=== PATIENT | female | born 1995 | race Two or more races ===

== ENCOUNTER → 2023-02-03 | Day surgery (SDC) | payer BC ==
[~2023-02-03] VITALS: Ht 170.2 cm; Wt 67.0 kg
[~2023-02-03] MED LIST: DICY-61 PO; FISH1CAP32 PO; L-LY500T23 PO; LIDOCAINE 2% 100MG/5ML SDV (FOR ANES.) As Ordered ONE; METR-265; NS 1,000 ML IV ONE; VALA500T5; VENL75CA47; fentaNYL 100 MCG/2 ML INJECTION As Ordered ONE; propofoL 200 MG/20 ML VIAL As Ordered ONE
[2023-02-03 15:02] VITALS: BP 111/68; TEMP 97.5; O2SAT 100
== END | disposition home or self-care (01) ==
LOC: M OPP 11:58
PROVIDERS: ATTEND Internal Medicine Gastroenterology
DX: R10.13 Epigastric pain (principal); R11.0 Nausea; K21.9 Gastro-esophageal reflux disease without esophagitis; Z79.899 Other long term (current) drug therapy; Z88.2 Allergy status to sulfonamides
CPT/HCPCS: 43235; J3010

== ENCOUNTER 2023-05-17 14:03 | Day surgery (SDC) | payer BC ==
[~2023-05-17] VITALS: Ht 170.2 cm; Wt 70.9 kg
[~2023-05-17 14:03] MED LIST changes: -LIDOCAINE 2% 100MG/5ML SDV (FOR ANES.) As Ordered ONE; -NS 1,000 ML IV ONE; -VALA500T5; +VALA500T5 PO; -VENL75CA47; +VENL75CA47 PO; -fentaNYL 100 MCG/2 ML INJECTION As Ordered ONE; -propofoL 200 MG/20 ML VIAL As Ordered ONE
[2023-05-17] MEDS ORDERED: LR 1,000 ML IV SCH ×2 (14:30→17:55)
[2023-05-17] MEDS ORDERED: propofoL 200 MG/20 ML VIAL As Ordered ONE (14:41)
[2023-05-17] MEDS ORDERED: fentaNYL 100 MCG/2 ML INJECTION As Ordered ONE (14:41)
[2023-05-17] MEDS ORDERED: MIDAZOLAM INJ 2MG/2ML VIAL As Ordered ONE (14:41)
[2023-05-17] MEDS ORDERED: GLYCOPYRROLATE INJ 0.2 MG/ML 2 ML VIAL As Ordered ONE (14:42)
[2023-05-17] MEDS ORDERED: LIDOCAINE 2% 100MG/5ML SDV (FOR ANES.) As Ordered ONE (14:42)
[2023-05-17] MEDS ORDERED: ROCURONIUM BROMIDE 50MG/5ML VIAL As Ordered ONE (14:43)
[2023-05-17] MEDS ORDERED: ONDANSETRON 4MG 2ML VIAL As Ordered ONE (14:43)
[2023-05-17] MEDS ORDERED: KETOROLAC 60MG 2ML VIAL As Ordered ONE (14:43)
[2023-05-17] MEDS: INDOCYANINE GREEN 25MG VIAL (IC-GREEN) IV ONE (16:50)
[2023-05-17] MEDS: ceFAZolin SOD 2 GM in IV 1 EA IV ONE (17:09)
[2023-05-17] MEDS: HEPARIN SOD (PORCINE) 5000UNITS/ML 1ML VIAL/SYRINGE SQ ONE (17:15)
[2023-05-17] MEDS ORDERED: dexmedeTOMIDine (4MCG/ML)200MCG/50ML BTL (PRECEDEX) As Ordered ONE (17:28)
[2023-05-17] MEDS ORDERED: ePHEDrine SULFATE 25 MG/5 ML(5MG/ML) SYRINGE As Ordered ONE (17:35)
[2023-05-17] MEDS ORDERED: SUGAMMADEX SODIUM 500 MG/5 ML VIAL (BRIDION) As Ordered ONE (17:42)
[2023-05-17] MEDS ORDERED: fentaNYL 100 MCG/2 ML INJECTION IV PRN (17:55)
[2023-05-17] MEDS: oxyCODONE 5MG TAB PO PRN (18:33)
[2023-05-17] MEDS: ONDANSETRON 4MG 2ML VIAL IV PRN (18:33)
[2023-05-17] MEDS: HYDROMORPHONE HCL 0.5 MG/ 0.5 ML SYRINGE IV PRN (18:33)
[2023-05-17] MEDS: METOCLOPRAMIDE INJ 10MG/2ML VIAL IV PRN (18:58)
[2023-05-17 19:15] VITALS: BP 104/61; TEMP 98.2; O2SAT 97
== END 2023-05-17 20:05 | disposition home or self-care (01) ==
LOC: M SDC 14:03
PROVIDERS: ATTEND Surgery
DX: K82.8 Other specified diseases of gallbladder (principal); K66.0 Peritoneal adhesions (postprocedural) (postinfection); K21.9 Gastro-esophageal reflux disease without esophagitis; F41.9 Anxiety disorder, unspecified; Z79.899 Other long term (current) drug therapy; Z88.2 Allergy status to sulfonamides
CPT/HCPCS: 47562; 81025; 88304; J0665; J0690; J1100; J1170; J1885; J2250; J2405; J2765; J3010; Q9968; S2900